=== PATIENT | male | born 1965 | race Caucasian/White ===

== ENCOUNTER 2023-10-21 15:06 | Emergency (ER) | payer BC, SELFPAY ==
--- NOTE | ~2023-10-21 | XR_ITS ---
EXAMINATION: XR CHEST CLINICAL INFORMATION: Right-sided chest pain COMPARISON: None available. TECHNIQUE: Frontal view of the chest was obtained. FINDINGS: No significant abnormality is noted involving the heart, lungs, mediastinum, bony thorax or soft tissues. XR/XR chest 1V IMPRESSION: Unremarkable examination.
--- NOTE | ~2023-10-21 | CT_ITS ---
EXAMINATION: CT HEAD WITHOUT CONTRAST CLINICAL INFORMATION: Dizziness. COMPARISON: None. TECHNIQUE: Contiguous axial imaging was performed from the skullbase to vertex without intravenous administration of contrast. This CT examination was performed using dose optimization techniques as appropriate, variously including the following: *Automated exposure control *Adjustment of mA and/or kV according to patient size (this includes techniques or standardized protocols for targeted exams where dose is matched to indication/reason for exam; i.e. extremities or head) *Use of iterative reconstruction technique DLP: 688 mGy-cm. FINDINGS: There is a lobulated high attenuation mass in the right cerebellar hemisphere with some faint areas of central low density. The lesion measures approximately 3.8 x 3.4 x 3.1 cm in size. Mass effect results in significant fourth ventricular compression. There is a moderate amount of surrounding edema in the right cerebellar white matter extending into the right middle cerebellar peduncle as well. The dorsal aspect of the mary and midbrain are slightly distorted from mass effect. There is no evidence of acute intracranial hemorrhage or territorial infarction. Flores to white matter differentiation is well preserved. No extra-axial fluid collections are identified. The osseous structures and soft tissues are normal. The mastoid air cells and visualized portions of the paranasal sinuses are well aerated. CT/CT head/brain wo IV con IMPRESSION: Approximate 3.8 x 3.4 cm lobulated high attenuation mass in the right cerebellar hemisphere with mass effect, fourth ventricular compression, and moderate surrounding vasogenic edema. High density of the mass may be due to increased tumor cellularity or underlying subacute blood products within the lesion. Effacement of the right cerebellopontine angle cistern and distortion of the dorsal brainstem as well. Although indeterminate, a metastatic lesion cannot be ruled out. An MRI of the brain without and with contrast is recommended for further evaluation. Imaging findings reported to IRENE Ortiz at 4:40 PM on 10/21/2023.
[2023-10-21 15:39] VITALS: BP 136/46; PULSE 77; RESP 16; TEMP 36; O2SAT 99; BMI 24.4
--- NOTE | 2023-10-21 15:39 | ED_ITS ---
HPI - General Adult General Chief complaint: Dizziness Stated complaint: dizziness,abd pain radiating to head Time Seen by Provider: 10/21/23 17:05 History of Present Illness ED Provider: Dr. Lui HPI narrative: 58 y/o M patient; PMH nicotine use disorder; presents from home reporting two weeks of right-sided chest pain, generalized headache associated with lightheadedness/dizziness. Now with two days of nausea/vomiting. The patient states all of his symptoms started 2 weeks ago. Before that he was in a usual state of health. He denies significant PMH of headaches. He states since the headache started it has been constant, he is able to sleep at night. He has incidentally noticed some weight loss which he cannot specify how much. He states he has not seen a doctor in over 10 years +. Related Data Allergies Allergy/AdvReac Type Severity Reaction Status Date / Time Penicillins Allergy Unknown Verified 10/21/23 15:43 Review of Systems 2 Review of Systems: Yes all other systems are reviewed and are negative Neurologic: Denies Sensory deficit (Neuro) PMFSH Past Medical History Attestation statement: The following information was validated with the patient. Source: unable to obtain Social History Social History Unable to assess alcohol history related to: Unable to respond Smoked in Last 30 Days: Yes Use of substances other than those prescribed or required for medical reasons: No Advance Directives: No Advance Directives Information Provided: No Physical Exam ED Vital Signs: Vital Signs - 24 hr 10/21/23 15:39 Temperature 96.8 F Pulse Rate 77 Respiratory Rate 16 Blood Pressure 136/46 L Pulse Oximetry 99 Oxygen Delivery Method Room Air BMI result Body Mass Index 24.4 Patient is afebrile and hemodynamically stable Const General: cooperative Orientation/consciousness: patient oriented x3 HENMT Head: Yes normal to inspection and Yes atraumatic Eyes General: appearance normal, both eyes and all related structures Pupils: Equal, round and reactive pupils present EOM: EOMs intact bilaterally Neck Neck: Yes normal visual inspection, Yes full ROM, Yes supple and No tender Chest Chest palpation & inspection: normal inspection of the chest and normal palpation of entire chest wall Resp Effort & Inspection: normal respiratory effort, able to speak in complete sentences, no cough and no respiratory distress Auscultation: clear to auscultation bilaterally Cardio Rate: regular rate Rhythm: regular rhythm Peripheral pulses: Peripheral pulses 2+ throughout GI Inspection: Yes normal to inspection, No Abdominal wall edema and No distended Palpation (GI): Soft to palpation, not firm, nontender, no guarding and not rigid Auscultation: normal bowel sounds Neuro Other: Mildly ataxia gait General: patient oriented x3 Cranial nerves: Yes Equal, round and reactive pupils present Cognition (Neuro): normal cognition Motor exam (neuro): 5/5 motor strength present throughout and Pronator motor function not present Sensory Exam: No Sensory deficit (Neuro) Coordination: [id number] test normal and [id number] test normal Course Course Course Narrative: This is a rapid medical exam completed by Braden ARREDONDON: Additional HPI, ROS, PE not included below will be deferred to primary provider. Right sided headache, fatigue, nausea, vomiting worse yesterday. Denies vision changes, Reevaluation(s) Reevaluation #1: I spoke with Dr Rosales, radiologist, regarding CT head with a 3-4 cm mass in the right cerebellar hemisphere. Time: 16:38 Reevaluation #2: Patient is afebrile and hemodynamically stable. Neurologically intact. Reviewed CT Head: Approx 3.8 by 3.4cm lobulated high attenuation mass in the right cerebellar hemisphere with mass effect, 4th ventricular compression and moderate surrounding vasogenic edema. Effacement of the right cerebellopontine angle cistern and distortion of the dosal brainstem as well. Ordered MRI Brain w and wo contrast. Discussed transfer with [facility]. Neurosurgery agreeable with transfer where they will consult. Discussed with hospitalist and patient accepted for transfer to [facility]. Plan: Transfer to [facility] Condition: Stable MRI to be completed at [facility] Medical Decision Making Lab Data 10/21/23 15:55 10/21/23 15:55 Labs: Lab Results 10/21/23 Range/Units 15:55 WBC 11.1 H (4.8-10.8) X10*3/uL RBC 4.63 (4.60-5.80) X10*6/uL Hgb 14.4 (14.0-18.0) g/dl Hct 40.9 L (42.0-52.0) % MCV 88.3 (80.0-98.0) fL MCH 31.1 (27.0-33.0) pg MCHC 35.2 (31.0-36.0) g/dl RDW 14.4 (11.0-16.0) % Plt Count 453 H (160-400) X10*3/uL MPV 8.2 L (9.4-12.4) fL Immature Gran % (Auto) 0.3 (0.0-0.4) % Neut % (Auto) 61.7 (45-73) % Lymph % (Auto) 32.2 (20-40) % [place] % (Auto) 4.6 (2-11) % Eos % (Auto) 0.8 (0-4) % Baso % (Auto) 0.4 (0-2) % Lymph # (Auto) 3.6 (1.2-4.9) X10*3/uL [place] # (Auto) 0.5 (0.1-1.2) X10*3/uL Eos # (Auto) 0.1 (0.0-0.4) X10*3/uL Baso # (Auto) 0.1 (0.0-0.2) X10*3/uL Abs Immat Gran (auto) 0.03 (0.00-0.03) X10*3/uL Absolute Neuts (auto) 6.9 (2.0-8.3) x10*3/uL Absolute Nucleated RBC 0.000 (0.0-0.012) X10*3/uL Nucleated RBC % (auto) 0.0 (0.0-0.2) /100WBC Sodium 136 (135-145) mmol/L Potassium 4.9 (3.3-5.1) mmol/L Chloride 100 (96-108) mmol/L Carbon Dioxide 24 (22-29) mmol/L Anion Gap 17 (12-20) BUN 17 H (9-16) mg/dL Creatinine 0.79 (0.5-1.4) mg/dL Estim Creat Clear Calc 103.9 Estimated GFR > 60 Random Glucose 74 (60-115) mg/dL Calcium 10.1 (8.4-10.2) mg/dL Magnesium 2.0 (1.6-2.6) mg/dL Total Bilirubin 0.5 (0.0-1.0) mg/dL AST 13 (5-37) U/L ALT 7 (0-40) U/L Alkaline Phosphatase 88 (39-117) U/L Troponin I High Sens < 2.7 (<3.5-35.0) ng/L Total Protein 8.1 H (6.5-8.0) g/dL Albumin 4.3 (3.5-5.0) g/dL Radiology Impression Discussion of test interpretation with radiology: I have reviewed the radiologist's reading. Radiologist Impression: EXAMINATION: CT HEAD WITHOUT CONTRAST CLINICAL INFORMATION: Dizziness. COMPARISON: None. TECHNIQUE: Contiguous axial imaging was performed from the skullbase to vertex without intravenous administration of contrast. This CT examination was performed using dose optimization techniques as appropriate, variously including the following: *Automated exposure control *Adjustment of mA and/or kV according to patient size (this includes techniques or standardized protocols for targeted exams where dose is matched to indication/reason for exam; i.e. extremities or head) *Use of iterative reconstruction technique DLP: 688 mGy-cm. FINDINGS: There is a lobulated high attenuation mass in the right cerebellar hemisphere with some faint areas of central low density. The lesion measures approximately 3.8 x 3.4 x 3.1 cm in size. Mass effect results in significant fourth ventricular compression. There is a moderate amount of surrounding edema in the right cerebellar white matter extending into the right middle cerebellar peduncle as well. The dorsal aspect of the mary and midbrain are slightly distorted from mass effect. There is no evidence of acute intracranial hemorrhage or territorial infarction. Flores to white matter differentiation is well preserved. No extra-axial fluid collections are identified. The osseous structures and soft tissues are normal. The mastoid air cells and visualized portions of the paranasal sinuses are well aerated. CT/CT head/brain wo IV con IMPRESSION: Approximate 3.8 x 3.4 cm lobulated high attenuation mass in the right cerebellar hemisphere with mass effect, fourth ventricular compression, and moderate surrounding vasogenic edema. High density of the mass may be due to increased tumor cellularity or underlying subacute blood products within the lesion. Effacement of the right cerebellopontine angle cistern and distortion of the dorsal brainstem as well. Although indeterminate, a metastatic lesion cannot be ruled out. An MRI of the brain without and with contrast is recommended for further evaluation. Imaging findings reported to IRENE Ortiz at 4:40 PM on 10/21/2023. Discharge Plan Discharge Clinical Impression: Mass of cerebellum Patient Disposition: Xfer Acute Care Hospital Transfer Details: Dr. Russo @ [facility] Print Language: Micronesian
--- NOTE | 2023-10-21 15:41 | ECG_ITS ---
Test Reason : WEAKNESS Blood Pressure : / mmHG Vent. Rate : 071 BPM Atrial Rate : 071 BPM P-R Int : 134 ms QRS Dur : 080 ms QT Int : 408 ms P-R-T Axes : 072 028 -22 degrees QTc Int : 443 ms Sinus rhythm with Premature atrial complexes Otherwise normal ECG No previous ECGs available Referred By: Henna Ortiz Electronically Signed By:Xvaier Pena
[2023-10-21 16:07] LABS: MANUAL DIFF FLAG NO
[2023-10-21 16:08] LABS: Basophils Absolute Auto 0.1 X10*3/uL (0.0-0.2); Basophils Percent Auto 0.4 % (0-2); Eosinophils Absolute Auto 0.1 X10*3/uL (0.0-0.4); Eosinophils Percent Auto 0.8 % (0-4); Hematocrit 40.9 % (42.0-52.0); Hemoglobin 14.4 g/dl (14.0-18.0); Imm Gran Abs Auto 0.03 X10*3/uL (0.00-0.03); Imm Gran Pct Auto 0.3 % (0.0-0.4); Lymphocytes Absolute Auto 3.6 X10*3/uL (1.2-4.9); Lymphocytes Percent Auto 32.2 % (20-40); Mean Corpuscular HGB Conc 35.2 g/dl (31.0-36.0); Mean Corpuscular Hemoglobin 31.1 pg (27.0-33.0); Mean Corpuscular Volume 88.3 fL (80.0-98.0); Mean Platelet Volume 8.2 fL (9.4-12.4); Monocytes Absolute Auto 0.5 X10*3/uL (0.1-1.2); Monocytes Percent Auto 4.6 % (2-11); Neutrophils Absolute Auto 6.9 x10*3/uL (2.0-8.3); Neutrophils Percent Auto 61.7 % (45-73); Platelet Count 453 X10*3/uL (160-400); Red Blood Count 4.63 X10*6/uL (4.60-5.80); Red Cell Distribution Width 14.4 % (11.0-16.0); White Blood Count 11.1 X10*3/uL (4.8-10.8)
[2023-10-21 16:26] LABS: Alanine Aminotransferase 7 U/L (0-40); Albumin Level 4.3 g/dL (3.5-5.0); Alkaline Phosphatase 88 U/L (39-117); Anion Gap 17 (12-20); Aspartate Amino Transferase 13 U/L (5-37); Bilirubin Total 0.5 mg/dL (0.0-1.0); Blood Urea Nitrogen 17 mg/dL (9-16); Calcium 10.1 mg/dL (8.4-10.2); Carbon Dioxide 24 mmol/L (22-29); Chloride 100 mmol/L (96-108); Creatinine Clr Calc Pharmacy 103.9; Estimated Glomerular Filt Rate > 60; Glucose Random 74 mg/dL (60-115); Potassium 4.9 mmol/L (3.3-5.1); Sodium 136 mmol/L (135-145); Total Protein 8.1 g/dL (6.5-8.0)
[2023-10-21 16:34] LABS: Troponin-I High Sensitivity < 2.7 ng/L (<3.5-35.0)
--- NOTE | 2023-10-21 17:44 | PC.NURSE ---
eriktent is resting quietly in ED stretcher, patient is alert and oriented x4. patient speaks in clear full sentences, patient passed swallow eval. patient VSS. patient neuros intact, patient gait ataxic
--- NOTE | 2023-10-21 18:48 | PC.NURSE ---
report given to RN on ko hennessy
[2023-10-21 19:33] VITALS: BP 144/67; PULSE 59; RESP 16; TEMP 36.7; O2SAT 99
== END 2023-10-22 02:05 | disposition short-term general hospital (02) ==
PROVIDERS: Nurse Practitioner Family; Emergency Provider Emergency Medicine
DX: G93.9 Disorder of brain, unspecified (principal); R42 Dizziness and giddiness; R07.89 Other chest pain; R51.9 Headache, unspecified; Z79.899 Other long term (current) drug therapy
CPT/HCPCS: 36415; 70450; 71045; 80053; 83735; 84484; 85025; 93005; 99284; 99285

== ENCOUNTER → 2023-10-21 15:41 | Outpatient (BNV) | payer BC, SELFPAY | PROVIDERS: Emergency Provider Emergency Medicine; Visit Provider Internal Medicine Cardiovascular Disease | DX: R42 Dizziness and giddiness (principal); R53.1 Weakness | CPT/HCPCS: 93010 ==